=== PATIENT | female | born 1985 | race Caucasian/White ===

== ENCOUNTER 2023-08-29 17:43 | Emergency (ER) | payer MEDICAID ==
[~2023-08-29] VITALS: Ht 165.1 cm; Wt 60.3 kg
[2023-08-29 17:49] VITALS: BP 122/75; PULSE 98; RESP 18; TEMP 96.3; O2SAT 94
[2023-08-29 18:17] LABS: APPEARANCE,URINE CLEAR (CLEAR); BILIRUBIN,URINE NEGATIVE (NEGATIVE); BLOOD, URINE NEGATIVE (NEGATIVE); COLOR,URINE YELLOW (YELLOW); LEUKOCYTE ESTERASE ,URINE NEGATIVE (NEGATIVE); NITRITE, URINE NEGATIVE (NEGATIVE); PROTEIN,URINE 3+ (NEGATIVE); UGLUCOSE NEGATIVE (NEGATIVE)
[2023-08-29 18:42] VITALS: TEMP 98.1
[2023-08-29 19:23] LABS: BASOPHILS % (AUTO) 0.4 % (0.0-2.0); EOSINOPHILS # (AUTO) 0.2 K/uL (0-0.4); EOSINOPHILS % (AUTO) 1.7 % (0.0-4.0); HEMOGLOBIN 10.6 g/dL (12.0-16.0); MEAN CORPUSCULAR HEMOGLOBIN 27 pg (27-31); MEAN CORPUSCULAR HGB CONC 33 g/dL (33-37); MEAN CORPUSCULAR VOLUME 79.9 fL (80-94); MONOCYTES # (AUTO) 0.9 K/uL (0.8-1.0); MONOCYTES % (AUTO) 7.7 % (1.7-9.3); NEUTROPHILS # (AUTO) 9.1 K/uL (1.8-7.7); NEUTROPHILS % (AUTO) 74.2 % (42.2-75.2); PLATELET COUNT (AUTO) 204 K/uL (140-450); RED CELL DISTRIBUTION WIDTH 15.1 % (11.6-13.7); WHITE BLOOD COUNT (AUTO) 12.3 K/uL (4.8-10.8)
[2023-08-29] MEDS ORDERED: HYDROcodone/APAP 10/325 MG 1 TAB TAB PO ONE (20:20)
[2023-08-29] MEDS ORDERED: ACET-8905 PO ×2 (21:18→21:43)
[2023-08-29 21:43] VITALS: BP 100/67; PULSE 98; RESP 12; O2SAT 99
== END 2023-08-29 21:43 | disposition home or self-care (01) ==
LOC: MED 17:43
DX: O9A.211 Injury, poisoning and certain other consequences of external causes complicating pregnancy, first trimester (principal); S13.4XXA Sprain of ligaments of cervical spine, initial encounter; Z3A.08 8 weeks gestation of pregnancy; V49.88XA Car occupant (driver) (passenger) injured in other specified transport accidents, initial encounter; Y93.89 Activity, other specified; Y92.89 Other specified places as the place of occurrence of the external cause; Y99.8 Other external cause status
CPT/HCPCS: 36415; 72040; 76817; 81003; 81025; 84702; 85025; 86900; 86901; 99284

== ENCOUNTER 2023-10-09 20:57 | Emergency (ER) | payer MEDICAID, OTHER ==
[~2023-10-09] VITALS: Ht 160 cm; Wt 86.2 kg
[~2023-10-09 20:57] MED LIST: ACET-8905 PO
[2023-10-09 21:10] VITALS: BP 107/67; PULSE 107; RESP 17; TEMP 98.2; O2SAT 98
== END 2023-10-09 22:43 | disposition left against medical advice (07) ==
LOC: MED 20:57
DX: R51.9 Headache, unspecified (principal); R10.30 Lower abdominal pain, unspecified; Z53.21 Procedure and treatment not carried out due to patient leaving prior to being seen by health care provider
CPT/HCPCS: 99281

== ENCOUNTER 2023-10-09 22:51 | Emergency (ER) | payer SELFPAY ==
[~2023-10-09] VITALS: Ht 167.6 cm; Wt 83.9 kg
[2023-10-09 23:00] VITALS: BP 90/54; PULSE 99; RESP 16; TEMP 98.1; O2SAT 98
== END 2023-10-10 01:30 | disposition left against medical advice (07) ==
LOC: MED 22:51
DX: O26.892 Other specified pregnancy related conditions, second trimester (principal); R51.9 Headache, unspecified; Z3A.17 17 weeks gestation of pregnancy; Z53.21 Procedure and treatment not carried out due to patient leaving prior to being seen by health care provider
CPT/HCPCS: 99281